=== PATIENT | female | born 1985 | race African-American/Black ===

== ENCOUNTER 2021-05-09 00:08 | Emergency (ER) | payer MEDICAID ==
[~2021-05-09] VITALS: Ht 170.2 cm; Wt 60.0 kg
[2021-05-09] MEDS ORDERED: ZIPRASIDONE HCL 20MG CAPSULE PO STA (00:47)
[2021-05-09 01:39] LABS: CLARITY URINE CLOUDY (CLEAR); COLOR URINE YELLOW (YELLOW); KETONES URINE TRACE (NEGATIVE); LEUKOCYTE ESTERASE URINE 3+ (NEGATIVE); NITRITE URINE NEGATIVE (NEGATIVE); OCCULT BLOOD URINE NEGATIVE (NEGATIVE); PROTEIN URINE NEGATIVE (NEGATIVE); SPECIFIC GRAVITY URINE 1.009 (1.005-1.030)
[2021-05-09 01:40] LABS: BASOPHILS % 0.6 % (0.0-2.0); EOSINOPHILS % 4.5 % (0.0-5.0); HEMOGLOBIN. 12.6 g/dL (12.0-16.0); LYMPHOCYTES % 42.3 % (20.0-50.0); MEAN CORPUSCULAR HEMOGLOBIN 30.4 pg (28.0-32.0); MEAN CORPUSCULAR VOLUME 91.5 fL (81.0-99.0); MEAN PLATELET VOLUME 7.5 fl (7.4-10.4); MONOCYTES % 9.2 % (2.0-8.0); NEUTROPHILS % 43.4 % (40.0-76.0); PLATELET 244 x1000/uL (130-400); RED BLOOD CELL COUNT 4.16 mill/uL (4.2-5.4)
[2021-05-09 01:48] LABS: CHLORIDE 114 mEq/L (98-107)
[2021-05-09 01:54] LABS: ETHANOL BLOOD < 10 mg/dL
[2021-05-09 01:55] LABS: TOTAL IRON BINDING CAPACITY 327 ug/dL (250-450)
[2021-05-09 01:58] LABS: INR 1.1; PARTIAL THROMBOPLASTIN TIME 26.8 sec (23.4-31.0); PROTHROMBIN TIME 11.4 sec (9.6-11.0)
[2021-05-09 02:20] LABS: *AMPHETAMINES SCREEN URINE NEGATIVE (NEGATIVE)
[2021-05-09 02:21] LABS: *BARBITURATES SCREEN URINE NEGATIVE (NEGATIVE); *BENZODIAZEPINES SCREEN URINE NEGATIVE (NEGATIVE); *COCAINE SCREEN URINE NEGATIVE (NEGATIVE); CANNABINOID URINE SCREEN NEGATIVE (NEGATIVE); METHADONE URINE SCREEN NEGATIVE (NEGATIVE); OPIATES URINE SCREEN NEGATIVE (NEGATIVE); PHENCYCLIDINE URINE SCREEN NEGATIVE (NEGATIVE)
[2021-05-09] MEDS ORDERED: CEPH500C2 MT (02:49)
[2021-05-09] MEDS ORDERED: CEPHALEXIN 250MG CAPSULE PO SCH (03:00)
[2021-05-09] MEDS ORDERED: LORAZEPAM 2MG/ML CPJ IM STA (09:24)
[2021-05-09] MEDS ORDERED: OLANZAPINE 10 MG/VIAL IM ONE ×2 (09:30→16:45)
[2021-05-09] MEDS: QUETIAPINE FUMARATE 25MG TABLET PO SCH (21:00)
[2021-05-10] MEDS ORDERED: OLANZAPINE 10MG TABLET PO ONE (02:15)
[2021-05-10] MEDS ORDERED: ZIPRASIDONE HCL 20MG CAPSULE PO SCH (02:15)
[2021-05-10] MEDS ORDERED: LORAZEPAM 2MG/ML CPJ IM PRN (02:30)
[2021-05-10] MEDS ORDERED: OLANZAPINE 10 MG/VIAL IM ONE ×2 (02:30→09:45)
[2021-05-10] MEDS ORDERED: LORAZEPAM 2MG/ML CPJ IM STA ×2 (09:43→19:22)
[2021-05-10] MEDS: QUETIAPINE FUMARATE 25MG TABLET PO SCH ×2 (09:56→21:00)
[2021-05-10] MEDS ORDERED: DIPHENHYDRAMINE 50MG/ML VIAL IM STA (19:22)
[2021-05-10] MEDS ORDERED: HALOPERIDOL LACTATE 5MG/ML VIAL IM STA (19:22)
[2021-05-11 02:35] VITALS: BP 108/70
== END 2021-05-11 02:51 ==
LOC: ER 00:08 → EDBD 00:08 → ER 05-11 02:51
DX: F23 Brief psychotic disorder (principal); N39.0 Urinary tract infection, site not specified; F16.10 Hallucinogen abuse, uncomplicated; E11.9 Type 2 diabetes mellitus without complications; F31.9 Bipolar disorder, unspecified; J45.909 Unspecified asthma, uncomplicated; Z75.1 Person awaiting admission to adequate facility elsewhere
CPT/HCPCS: 36415; 71045; 74018; 80053; 80178; 80305; 80307; 80320; 80329; 81003; 81025; 82728; 83540; 83550; 85025; 85610; 85730; 87426; 96372; 99285; C9803; J1200; J1630; J2060; J3490; U0003; U0005; G0480